=== PATIENT | male | born 1960 | race Caucasian/White ===

== ENCOUNTER 2019-06-22 10:52 | Emergency (ER) | payer MEDICARE ==
[2019-06-22] MEDS ORDERED: Dexamethasone IV* 4 MG/ML 1 ML (4 MG) IM ONE (11:35)
--- NOTE | 2019-06-22 11:35 | ED ---
Back Pain - HPI Summary HPI Summary: This patient is a 59 year old M presenting to ED with a chief complaint of lower back pain, head pain and neck pain since 06/20/19. Patient has previously had surgery twice on his low back. Patient reports decreased urination but normal bowel movements. Patients last back surgery was two years ago, which was the last time he had back pain. Patient has been shoveling recently. Patient moved into his new house two weeks ago, so he has been exerting himself recently with heavy lifting. Patient also reports having fluid in the left ear. The patient rates the pain 10/10 in severity. Symptoms aggravated by lifting. Symptoms alleviated by nothing. Patient has been taking Tylenol and Ibuprofen, which has not been helping. Patient reports cough. Patient denies incontinence, fevers, chills, nausea, vomiting. - History of Current Complaint Chief Complaint: EDBackInjuryPain Stated Complaint: BACK PAIN NECK PAIN Time Seen by Provider: 06/22/19 11:14 Hx Obtained From: Patient Onset/Duration: Lasting Days - 2 days ago, Still Present Onset/Duration: Started Days Ago - 2 days ago, Still Present Timing: Lasting Days - 2 days ago Back Pain Location: Is Discrete @ - Low back Severity Initially: Severe Severity Currently: Severe Pain Intensity: 11 Pain Scale Used: 0-10 Numeric Aggravating Symptom(s): Lifting Alleviating Symptom(s): Nothing Associated Signs And Symptoms: Positive: Other - Cough. Negative: Fever - Allergies/Home Medications Allergies/Adverse Reactions: Allergies Allergy/AdvReac Type Severity Reaction Status Date / Time latex Allergy Rash Verified 06/22/19 10:59 avoids oxycodone Allergy r/t Uncoded 06/22/19 10:59 duration of use, not dependent EPIDURAL Allergy Agitation, Uncoded 06/22/19 10:59 numbness PMH/Surg Hx/FS Hx/Imm Hx Endocrine/Hematology History: Reports: Hx Diabetes - on meds Cardiovascular History: Reports: Hx Hypertension Denies: Other Cardiovascular Problems/Disorders Comment Only: Hx Pacemaker/ICD - on meds Respiratory History: Denies: Other Respiratory Problems/Disorders GI History: Denies: Other GI Disorders History: Reports: Hx Kidney Stones - several times in the past Denies: Hx Renal Disease Musculoskeletal History: Reports: Hx Arthritis - KNEES, Sensory History: Denies: Hx Contacts or Glasses, Hx Hearing Aid Opthamlomology History: Denies: Hx Contacts or Glasses Neurological History: Denies: Other Neuro Impairments/Disorders Psychiatric History: Reports: Hx Anxiety - ON MEDICATION FOR, Hx Depression - ON MEDICATION FOR Denies: Hx Panic Disorder - Surgical History Surgery Procedure, Year, and Place: LT KNEE SCOPE X2(REMOVAL OF HARDWARE);, 1992 , [facility]. RT KNEE SCOPE,age 14. KIDNEY STONE REMOVED lithotripsy. LSP SURGERY 2016 L3-L4 , [facility]. hernia/ colon surgery, 2017 Hx Anesthesia Reactions: No Infectious Disease History: No Infectious Disease History: Denies: Traveled Outside the [place] in Last 30 Days - Family History Known Family History: Positive: Hypertension - Social History Alcohol Use: Rare Alcohol Amount: holidays Hx Substance Use: No Substance Use Type: Reports: None Hx Tobacco Use: Yes Smoking Status (MU): Heavy Every Day Tobacco Smoker Amount Used/How Often: 1 PPD X 45 YEARS Have You Smoked in the Last Year: Yes Review of Systems Negative: Fever, Chills Positive: Cough Negative: Vomiting, Nausea Negative: incontinence Musculoskeletal: Other - Back pain, neck pain, head pain All Other Systems Reviewed And Are Negative: Yes Physical Exam - Summary Physical Exam Summary: GENERAL: Patient is a well-developed and nourished M who is lying comfortable in the stretcher. Patient is not in any acute respiratory distress. HEAD AND FACE: Normocephalic EYES: PERRLA, EOMI x 2. EARS: Hearing grossly intact. LEFT TM CLEAR MOUTH: Oropharynx within normal limits. NECK: Supple, trachea is midline, no adenopathy, no JVD, no carotid bruit. CHEST: Symmetric, no tenderness at palpation LUNGS: Clear to auscultation bilaterally. No wheezing or crackles. CVS: Regular rate and rhythm, S1 and S2 present, no murmurs or gallops appreciated. ABDOMEN: Soft, non-tender. Bowel sounds are normal. No abnormal abdominal pulsations. BACK: tenderness to palpation L-spine area, surgical scar is clean, dry, and intact EXTREMITIES: Full ROM in all major joints, no edema, no cyanosis or clubbing. NEURO: Alert and oriented x 3. No acute neurological deficits. Speech is normal and follows commands. SKIN: Dry and warm Triage Information Reviewed: Yes Vital Signs On Initial Exam: Initial Vitals Temp Pulse Resp BP Pulse Ox 98.1 F 109 19 129/71 96 06/22/19 10:55 06/22/19 10:55 06/22/19 10:55 06/22/19 10:55 06/22/19 10:55 Vital Signs Reviewed: Yes Diagnostics - Vital Signs Vital Signs Temp Pulse Resp BP Pulse Ox 06/22/19 10:55 98.1 F 109 19 129/71 96 - Laboratory Result Diagrams: 06/22/19 13:44 06/22/19 13:44 Lab Statement: Any lab studies that have been ordered have been reviewed, and results considered in the medical decision making process. - Radiology CXR Radiology Interpretation Completed By: Radiologist Summary of Radiographic Findings: #. Stigmata of obstructive lung disease. No acute pulmonary or cardiac process evident. Dr. Petty has reviewed this radiology report. - CT L-spine CT Interpretation Completed By: Radiologist Summary of CT Findings: #. Negative for fracture. #. At L4-L5 there is a moderate broad dorsal disc protrusion with resulting increased impression on the ventral margin of the thecal sac compared with the 2015 exam moderately severe RIGHT and moderate LEFT foraminal stenosis at L4-L5 appears grossly unchanged. Postsurgical change of RIGHT unilateral laminectomy. Dr. Petty has reviewed this radiology report. A/P CT Interpretation Completed By: Radiologist Summary of CT Findings: #. The constellation of findings with edema within the fat surrounding the rectum, prostate, and urinary bladder is most suspicious for cystitis and/or or prostatitis given the clinical context. #. Negative for urolithiasis or hydronephrosis. Dr. Petty has reviewed this radiology report. Re-Evaluation - Re-Evaluation First Eval Re-Evaluation Time: 12:40 Comment: Discussed results with patient. Patient has broad dorsal disc herniation. Gave patient orange juice so he could provide urine. Second Eval Re-Evaluation Time: 13:14 Comment: Discussed UA results with patient. Patient's states she will regulate and monitor patient's pain medication. However, when I was about to discharge patient, patient said last night had shakes and rigors. Therefore, I took vital signs in the room, which were stable, and I will do blood work. Third Eval Re-Evaluation Time: 14:06 Comment: Discussed blood work with patient and need for a CT A/P to rule out kidney stones. Patient has a history of kidney stones. Fourth Eval Re-Evaluation Time: 15:13 Comment: Discussed CT A/P results with patient. Patient will be discharged home with dx of L4-L5 disc herniation, UTI, and prostatitis. Patient understands and agrees with this plan. Back Pain Course/Dx - Course Course Of Treatment: This patient is a 59 year old M presenting to ED with a chief complaint of lower back pain, head pain and neck pain since 06/20/19. In the ED course, patient received Flexeril, Decadron, Toradol, and Percocet. CT L- spine revealed #. Negative for fracture. #. At L4-L5 there is a moderate broad dorsal disc protrusion with resulting increased impression on the ventral margin of the thecal sac compared with the 2015 exam moderately severe RIGHT and moderate LEFT foraminal stenosis at L4-L5 appears grossly unchanged. Postsurgical change of RIGHT unilateral laminectomy. CXR revealed #. Stigmata of obstructive lung disease. No acute pulmonary or cardiac process evident. UA revealed 1+ urine protein, 2+ urine blood, 2+ leukocyte esterase, 3+ urine WBC, 2+ urine RBC, present urine squamous epithelial cells, 3+ urine bacteria, present hyaline casts, and 1+ urine glucose. UA consistent with a UTI, will treat pending cultures. I gave Keflex in the ED. I discussed results with patient, and he reports feeling better. However, when I was about to discharge patient, patient said last night he had shakes and rigors. Therefore, I took vital signs in the room, which were stable, and I will do blood work. Blood work revealed WBC 17.5, RBC 4.06, Hgb 13.3, Hct 38, MCH 33, Plt count 131, absolute neuts 14.9, absolute lymphs 0.9, absolute monos 1.5, INR 1.38, sodium 134, BUN/creatinine ratio 23.3, glucose 171, AST 11, CRP 185.76, lipase 88. CT A /P revealed #. The constellation of findings with edema within the fat surrounding the rectum, prostate, and urinary bladder is most suspicious for cystitis and/or or prostatitis given the clinical context. #. Negative for urolithiasis or hydronephrosis. I discussed results with patient. He is hemodynamically stable and safe for discharge. Strict return precautions given and he will otherwise follow up with his PCP. Patient will be discharged home with dx of L4-L5 disc herniation, UTI, and prostatitis. Patient was only prescribed a 2 weeks course of bactrim for presumed Prostatitis and is instructed to follow up outpatient for and additional 4 weeks treatment if this is truly Prostatitis. Patient understands and agrees with this plan. - Diagnoses Provider Diagnoses: UTI (urinary tract infection), Herniation of intervertebral disc between L4 and L5, Prostatitis Discharge ED - Sign-Out/Discharge Documenting (check all that apply): Patient Departure - Discharge Patient Received Moderate/Deep Sedation with Procedure: No - Discharge Plan Condition: Stable Disposition: HOME Prescriptions: Cephalexin CAP* [Keflex CAP*] 500 mg PO BID #14 cap Cyclobenzaprine TAB* [Flexeril 10 MG TAB*] 10 mg PO TID PRN #24 tab PRN Reason: Pain - Moderate Ibuprofen TAB* [Motrin TAB* 800 MG] 800 mg PO Q8H PRN 7 Days #24 tab PRN Reason: Pain - Moderate oxyCODONE TAB* [Roxycodone TAB 5 mg*] 5 mg PO Q8H PRN #9 tab MDD 3 PRN Reason: Pain - Moderate predniSONE [Prednisone 20 MG TAB] 40 mg PO DAILY #8 tablet Sulfamethox/Trimethoprim DS* [Bactrim DS 800/160 TAB*] 1 tab PO BID #28 tab Patient Education Materials: Prostatitis (ED), Urinary Tract Infection in Men ( ED), Lumbar Disc Herniation (ED) Referrals: Beni Galicia MD [Primary Care Provider] - 3 Days Dudley Parmar MD [Medical Doctor] - 3 Days Tj Palafox MD [Medical Doctor] - 3 Days Additional Instructions: You should follow-up with your PCP for continuation of back treatment regimen and for the treatment of prostatitis because I am only treating for two weeks. RETURN TO THE EMERGENCY DEPARTMENT FOR CHANGING OR WORSENING SYMPTOMS. - Billing Disposition and Condition Condition: STABLE Disposition: Home - Attestation Statements Document Initiated by Scribe: Yes Documenting Scribe: Harjinder Andrews Provider For Whom Higinio is Documenting (Include Credential): Caitlin Petty MD Scribe Attestation: Harjinder White, scribed for Caitlin Petty MD on 06/22/19 at 1558. Scribe Documentation Reviewed: Yes Provider Attestation: The documentation as recorded by the scribe, Harjinder Andrews accurately reflects the service I personally performed and the decisions made by me, Caitlin Petyt MD Status of Scribe Document: Viewed
[2019-06-22] MEDS ORDERED: Cyclobenzaprine TAB* 10 MG PO ONE (11:36)
[2019-06-22] MEDS ORDERED: Ketorolac *IM* INJ* 60 MG/2 ML VIAL IM ONE (11:36)
[2019-06-22] MEDS ORDERED: oxyCODONE/Acetamin 5/325 MG* TAB PO ONE (11:36)
[2019-06-22 13:04] LABS: Urine Appearance Cloudy; Urine Bacteria 3+ (Absent); Urine Bilirubin Negative (Negative); Urine Blood 2+ (Negative); Urine Color Amber; Urine Glucose 1+(50 mg/dL) (Negative); Urine Ketones Negative (Negative); Urine Nitrite Negative (Negative); Urine Protein 1+(30 mg/dL) (Negative); Urine Red Blood Cell 2+(6-10/hpf) (Absent); Urine Specific Gravity 1.026 (1.010-1.030); Urine Squamous Epithelial Cell Present (Absent); Urine Urobilinogen Negative (Negative); Urine White Blood Cell 3+(>20/hpf) (Absent)
[2019-06-22] MEDS ORDERED: Cephalexin CAP* 500 MG PO ONE (13:09)
[2019-06-22 13:58] LABS: ABS Basophils 0.1 10^3/ul (0-0.2); ABS Lymphocytes 0.9 10^3/ul (1.0-4.8); ABS Monocytes 1.5 10^3/ul (0-0.8); ABS Neutrophils 14.9 10^3/ul (1.5-7.7); Eosinophil % 0.3 %; Hematocrit 38 % (42-52); Hemoglobin 13.3 g/dL (14.0-18.0); Lymphocyte % 5.3 %; Mean Corpuscular HGB Conc 35 g/dL (31-36); Mean Corpuscular Hemoglobin 33 pg (27-31); Mean Corpuscular Volume 93 fL (80-94); Mean Platelet Volume 8.5 fL (7.4-10.4); Platelet Count 131 10^3/uL (150-450); Red Blood Count 4.06 10^6 /uL (4.18-5.48); Red Cell Distribution Width 13 % (10-15); White Blood Count 17.5 10^3/uL (3.5-10.8)
[2019-06-22 14:06] LABS: Activated Partial Thrombo Time 33.4 seconds (26.0-38.0); INR 1.38 (0.82-1.09)
[2019-06-22 14:16] LABS: Albumin 3.8 g/dL (3.2-5.2); Albumin/Globulin Ratio 1.4 (1-3); BUN/Creatinine Ratio 23.3 (8-20); Calcium 9.5 mg/dL (8.6-10.3); EGFR African American 88.8 (>60); EGFR Non-African American 73.4 (>60); Globulin 2.8 g/dL (2-4); Potassium 3.7 mmol/L (3.5-5.0); Total Bilirubin 0.7 mg/dL (0.2-1.0); Total Protein 6.6 g/dL (6.4-8.9)
[2019-06-22 14:21] LABS: CRP High Sensitivity 185.76 mg/L (<2.00)
[2019-06-22] MEDS ORDERED: Sulfamethox/Trimethoprim DS 800/160* TAB PO ONE (15:06)
[2019-06-22 15:22] VITALS: BP 119/73
== END 2019-06-22 15:21 | disposition home or self-care (01) ==
LOC: ED 10:52
DX: N39.0 Urinary tract infection, site not specified (principal); M51.26 Other intervertebral disc displacement, lumbar region; N41.9 Inflammatory disease of prostate, unspecified; R51 Headache; M54.2 Cervicalgia; E11.9 Type 2 diabetes mellitus without complications; Z79.84 Long term (current) use of oral hypoglycemic drugs; I10 Essential (primary) hypertension; Z87.442 Personal history of urinary calculi; F41.9 Anxiety disorder, unspecified; F32.9 Major depressive disorder, single episode, unspecified; F17.210 Nicotine dependence, cigarettes, uncomplicated; R05 Cough; Z79.899 Other long term (current) drug therapy
CPT/HCPCS: 36415; 71045; 72131; 74176; 80053; 81003; 81015; 83605; 83690; 83735; 85025; 85610; 85730; 86141; 87040; 87077; 87086; 87186; 96372; 99283; A9270-GY; J1100; J1885

== ENCOUNTER 2019-07-06 18:26 | Emergency (ER) | payer MEDICARE ==
[2019-07-06 18:40] VITALS: BP 110/58
--- NOTE | 2019-07-06 18:57 | UC ---
Abdominal Pain Male HPI - HPI Summary HPI Summary: 59-year-old male comes in with a chief complaint of epigastric pain and black stools. Is been going on for more than a week. He reports 2 to 3 black stools per day. Normally only has one stool per day. Reports epigastric pain is 9 out of 10. Is worse with palpation. No complaint of any fevers. Patient reports all this started when he started taking antibiotics for sepsis when he was [facility] to the [facility] on 22 June. Patient also has diabetes. - History of Current Complaint Chief Complaint: UCAbdominalPain Stated Complaint: VOMITTING,CONSTIPATION,ABD "KNOT" Time Seen by Provider: 07/06/19 18:39 Pain Intensity: 9 - Allergies/Home Medications Allergies/Adverse Reactions: Allergies Allergy/AdvReac Type Severity Reaction Status Date / Time latex Allergy Rash Verified 07/06/19 18:41 avoids oxycodone Allergy r/t Uncoded 07/06/19 18:41 duration of use, not dependent EPIDURAL Allergy Agitation, Uncoded 07/06/19 18:41 numbness Home Medications: Home Medications Cephalexin CAP* [Keflex CAP*] 500 mg PO DAILY 07/06/19 [History] Sulfamethox/Trimethoprim DS* [Bactrim DS 800/160 TAB*] 1 tab PO DAILY 07/06/19 [ History Confirmed 07/06/19] PMH/Surg Hx/FS Hx/Imm Hx Previously Healthy: Yes - KIDNEY STONES Endocrine History: Diabetes, Dyslipidemia Cardiovascular History: Hypertension - Surgical History Surgical History: Yes Surgery Procedure, Year, and Place: LT KNEE SCOPE X2(REMOVAL OF HARDWARE);, 1991 , [facility] [place]. RT KNEE SCOPE,age 14. KIDNEY STONE REMOVED lithotripsy. LSP SURGERY 2016 L3-L4 , [facility] [place]. hernia/ colon surgery, 2017 - Family History Known Family History: Positive: Hypertension - Social History Alcohol Use: Rare Alcohol Amount: holidays Substance Use Type: None Smoking Status (MU): Heavy Every Day Tobacco Smoker Amount Used/How Often: 1 PPD X 45 YEARS Have You Smoked in the Last Year: Yes Review of Systems All Other Systems Reviewed And Are Negative: Yes Constitutional: Positive: Negative Skin: Positive: Negative Eyes: Positive: Negative ENT: Positive: Negative Respiratory: Positive: Negative Cardiovascular: Positive: Negative Gastrointestinal: Positive: Abdominal Pain, Vomiting - Reports of vomiting denies any blood in the vomit., Other - SEE HPI Genitourinary: Positive: Frequency - Reports increased urinary frequency Motor: Positive: Negative Neurovascular: Positive: Negative Musculoskeletal: Positive: Negative Neurological: Positive: Negative Psychological: Positive: Negative Is Patient Immunocompromised?: No Physical Exam Triage Information Reviewed: Yes Appearance: Well-Appearing, Well-Nourished, Pain Distress - MILD/MODERATE WITH EXAM Vital Signs: Initial Vital Signs Temp 98.4 F 07/06/19 18:36 Pulse 106 07/06/19 18:36 Resp 16 07/06/19 18:36 BP 110/58 07/06/19 18:36 Pulse Ox 100 07/06/19 18:36 Vital Signs Reviewed: Yes Eye Exam: Normal Eyes: Positive: Conjunctiva Clear Neck: Positive: Supple Respiratory: Positive: Lungs clear, Normal breath sounds, No respiratory distress Cardiovascular: Positive: Tachycardia Abdomen Description: Positive: Other: - Tender to palpation in the epigastrium. Lower abdomen is nontender. Bowel Sounds: Positive: Present Musculoskeletal: Positive: ROM Intact Neurological: Positive: Alert, Muscle Tone Normal Psychological: Positive: Age Appropriate Behavior Skin Exam: Normal Abd Pain Male Course/Dx - Course Course Of Treatment: I recommended further evaluation in the emergency department patient declined embolus transport said he would go by POV. I discussed the patient with a [facility] emergency department provider. - Differential Dx/Clinical Impression Provider Diagnosis: Abdominal pain, Epigastric pain, Black stools Discharge ED - Sign-Out/Discharge Documenting (check all that apply): Patient Departure All imaging exams completed and their final reports reviewed: No Studies - Discharge Plan Condition: Stable Disposition: HOME-RECOMMEND TO ED Patient Education Materials: Epigastric Pain (ED), Melena (ED) Referrals: Beni Galicia MD [Primary Care Provider] - Additional Instructions: GO DIRECTLY TO THE EMERGENCY DEPARTMENT FOR FURTHER EVALUATION AND CARE OF YOUR ABDOMINAL PAIN AND BLACK STOOLS. - Billing Disposition and Condition Condition: STABLE Disposition: Home-Recommend to ED
== END 2019-07-06 19:02 | disposition home health service (06) ==
LOC: UCCORT 18:26
DX: R10.13 Epigastric pain (principal); K92.1 Melena; E11.9 Type 2 diabetes mellitus without complications; I10 Essential (primary) hypertension; F17.210 Nicotine dependence, cigarettes, uncomplicated
CPT/HCPCS: 99212; G0463

== ENCOUNTER 2019-12-23 10:35 | Emergency (ER) | payer MEDICARE ==
--- NOTE | 2019-12-23 10:51 | ED ---
Lower Extremity - HPI Summary HPI Summary: 59 year old M presenting to [facility] with a chief complaint of right lower extremity pain that begins at his hip and radiates to his ankle since 2 weeks ago. The patient rates the pain 9/10 in severity. Patient reports right ankle swelling and right knee pain. Symptoms aggravated by sitting and palpation. Symptoms alleviated by nothing. The patient was seen in May of 2019 for right ankle pain that had subsided and has now returned. The patient admits to an active history of smoking. Medication list reviewed. Allergy list reviewed. Home Medications Medication Instructions Recorded Confirmed Type Citalopram TAB* [Celexa TAB*] 20 mg PO QAM 11/05/15 07/06/19 History Hydrochlorothiazide TAB* 25 mg PO QAM 11/05/15 07/06/19 History [Hydrodiuril TAB*] Simvastatin [Zocor 40 MG (NF)] 40 mg PO QAM 11/05/15 07/06/19 History Verapamil TAB* [Calan TAB*] 120 mg PO QAM 11/05/15 07/06/19 History metFORMIN* [Glucophage 500 MG TAB 1,000 mg PO QAM 11/05/15 07/06/19 History *] Lisinopril TAB* [Prinivil TAB 10 40 mg PO DAILY 06/08/19 07/06/19 History MG*] Ibuprofen TAB* [Motrin TAB* 800 MG] 800 mg PO Q8H PRN 7 Days #24 tab 06/22/19 Rx Cephalexin CAP* [Keflex CAP*] 500 mg PO DAILY 07/06/19 History Sulfamethox/Trimethoprim DS* 1 tab PO DAILY 07/06/19 07/06/19 History [Bactrim DS 800/160 TAB*] - History of Current Complaint Chief Complaint: EDExtremityLower Stated Complaint: RT LEG/BACK PAIN PER PT Time Seen by Provider: 12/23/19 10:45 Hx Obtained From: Patient Mechanism Of Injury: Unknown Onset of Pain: Days Onset/Duration: Weeks Severity Initially: Severe Severity Currently: Severe Pain Intensity: 9 Pain Scale Used: 0-10 Numeric Location: Is Discrete @ - Right leg Aggravating Factor(s): Other - Sitting; palpation Alleviating Factor(s): Nothing - Allergies/Home Medications Allergies/Adverse Reactions: Allergies Allergy/AdvReac Type Severity Reaction Status Date / Time latex Allergy Rash Verified 12/23/19 10:40 Sulfa (Sulfonamide Allergy Abdominal Verified 12/23/19 10:41 Antibiotics) Pain EPIDURAL Allergy Agitation, Uncoded 12/23/19 10:40 numbness Home Medications: Home Medications Hydrochlorothiazide TAB* [Hydrodiuril TAB*] 25 mg PO QAM 11/05/15 [History Confirmed 12/23/19] Simvastatin [Zocor 40 MG (NF)] 40 mg PO QPM 11/05/15 [History Confirmed 12/23/19 ] Verapamil TAB* [Calan TAB*] 120 mg PO DAILY 11/05/15 [History Confirmed 12/23/19 ] metFORMIN* [Glucophage 500 MG TAB *] 1,000 mg PO DAILY 11/05/15 [History Confirmed 12/23/19] Betamethasone Nita 0.1% CM(NF) [Valisone 0.1% CM(NF)] 1 applic TOPICAL DAILY 07/05 [History Confirmed 12/23/19] Omeprazole (Nf) [Prilosec (NF)] 40 mg PO DAILY 12/23/19 [History Confirmed 12/22] Telmisartan 20 mg PO DAILY 12/23/19 [History Confirmed 12/23/19] buPROPion SR TAB* [Wellbutrin SR TAB*] 150 mg PO BID 12/23/19 [History Confirmed 12/23/19] PMH/Surg Hx/FS Hx/Imm Hx Endocrine/Hematology History: Reports: Hx Diabetes - on meds Cardiovascular History: Reports: Hx Hypertension Denies: Other Cardiovascular Problems/Disorders Comment Only: Hx Pacemaker/ICD - on meds Respiratory History: Denies: Other Respiratory Problems/Disorders GI History: Denies: Other GI Disorders History: Reports: Hx Kidney Stones - several times in the past Denies: Hx Renal Disease Musculoskeletal History: Reports: Hx Arthritis - KNEES, Sensory History: Denies: Hx Contacts or Glasses, Hx Hearing Aid Opthamlomology History: Denies: Hx Contacts or Glasses Neurological History: Denies: Other Neuro Impairments/Disorders Psychiatric History: Reports: Hx Anxiety - ON MEDICATION FOR, Hx Depression - ON MEDICATION FOR Denies: Hx Panic Disorder - Surgical History Surgery Procedure, Year, and Place: LT KNEE SCOPE X2(REMOVAL OF HARDWARE);, 1991 , [facility]. RT KNEE SCOPE,age 14. KIDNEY STONE REMOVED lithotripsy. LSP SURGERY 2016 L3-L4 , [facility]. hernia/ colon surgery, 2017 Hx Anesthesia Reactions: No Infectious Disease History: No Infectious Disease History: Denies: Traveled Outside the [place] in Last 30 Days - Family History Known Family History: Positive: Hypertension - Social History Alcohol Use: Rare Alcohol Amount: holidays Hx Substance Use: No Substance Use Type: Reports: None Hx Tobacco Use: Yes Smoking Status (MU): Heavy Every Day Tobacco Smoker Amount Used/How Often: 1 PPD X 45 YEARS Have You Smoked in the Last Year: Yes Review of Systems Positive: Other - Right leg pain; right hip pain; right ankle pain; right knee pain Positive: Other - Right ankle swelling All Other Systems Reviewed And Are Negative: Yes Physical Exam - Summary Physical Exam Summary: VITAL SIGNS: Reviewed. GENERAL: Patient is an obese male in no acute distress who is lying comfortable in the stretcher. Patient is not in any acute respiratory distress. HEAD AND FACE: No signs of trauma. No ecchymosis, hematomas or skull depressions. No sinus tenderness. EYES: PERRLA, EOMI x 2, No injected conjunctiva, no nystagmus. EARS: Hearing grossly intact. Ear canals and tympanic membranes are within normal limits. MOUTH: Oropharynx within normal limits. NECK: Supple, trachea is midline, no adenopathy, no JVD, no carotid bruit, no c- spine tenderness, neck with full ROM. CHEST: Symmetric, no tenderness at palpation. LUNGS: Clear to auscultation bilaterally. No wheezing or crackles. CVS: Regular rate and rhythm, S1 and S2 present, no murmurs or gallops appreciated. ABDOMEN: Soft, non-tender. No signs of distention. No rebound, no guarding, and no masses palpated. Bowel sounds are normal. EXTREMITIES: Decreased range of motion in right hip secondary to pain, no injury , no deformity; right calf slightly tender, no swelling, no erythema. Has an erythematous patch with scaling to the dorsal aspect of his knee secondary to psoriasis. Ankle tenderness to dorsal aspect of his ankle and foot, no deformity , no erythema, good pulses, good capillary fill. NEURO: Alert and oriented x 3. No acute neurological deficits. Speech is normal and follows commands. SKIN: Dry and warm. Triage Information Reviewed: Yes Vital Signs On Initial Exam: Initial Vitals Temp Pulse Resp BP Pulse Ox 98.4 F 92 18 165/99 97 12/23/19 10:37 12/23/19 10:37 12/23/19 10:37 12/23/19 10:37 12/23/19 10:37 Vital Signs Reviewed: Yes Procedures - Sedation Patient Received Moderate/Deep Sedation with Procedure: No Diagnostics - Vital Signs Vital Signs Temp Pulse Resp BP Pulse Ox 12/23/19 10:37 98.4 F 92 18 165/99 97 - Laboratory Result Diagrams: 12/23/19 11:02 12/23/19 11:00 Lab Statement: Any lab studies that have been ordered have been reviewed, and results considered in the medical decision making process. - Radiology Hip/Pelvis x-ray Radiology Interpretation Completed By: Radiologist Summary of Radiographic Findings: NO ACUTE OSSEOUS INJURY. IF SYMPTOMS PERSIST, RECOMMEND REPEAT IMAGING. ED physician has reviewed this report. Foot x-ray Radiology Interpretation Completed By: Radiologist Summary of Radiographic Findings: OSTEOARTHRITIS. NO ACUTE OSSEOUS INJURY. IF SYMPTOMS PERSIST, RECOMMEND REPEAT IMAGING. ED physician has reviewed this report. Ankle x-ray Radiology Interpretation Completed By: Radiologist Summary of Radiographic Findings: OSTEOARTHRITIS. NO ACUTE OSSEOUS INJURY. IF SYMPTOMS PERSIST, RECOMMEND REPEAT IMAGING. ED physician has reviewed this report. - Ultrasound Venous Doppler Ultrasound Interpretation Completed By: Radiologist Summary of Ultrasound Findings: NO RIGHT LOWER EXTREMITY DEEP VEIN THROMBOSIS. ED physician has reviewed this report. Lower Extremity Course/Dx - Course Assessment/Plan: 59 year old M presenting to [facility] with a chief complaint of right lower extremity pain that begins at his hip and radiates to his ankle since 2 weeks ago. The patient rates the pain 9/10 in severity. Patient reports right ankle swelling and right knee pain. Symptoms aggravated by sitting and palpation. Symptoms alleviated by nothing. The patient was seen in May of 2019 for right ankle pain that had subsided and has now returned. The patient admits to an active history of smoking. Medication list reviewed. Allergy list reviewed. Blood work without a significant abnormality except for hematocrit 41 , chloride 99, glucose is 234. In the ED course the patient was given Toradol and [place] for pain. Hip x-ray impression: No acute osseous injury. Foot and ankle x-ray IMPRESSION: OSTEOARTHRITIS. NO ACUTE OSSEOUS INJURY. IF SYMPTOMS PERSIST, RECOMMEND REPEAT IMAGING. RLE u/s IMPRESSION: NO RIGHT LOWER EXTREMITY DEEP VEIN THROMBOSIS. I discussed all the findings and test results with the patient. Patient was instructed to return to the emergency room immediately if any of the symptoms return or worsen. Plan of care was discussed with the patient and he understands and agrees. All questions were answered at patient satisfaction. There were no further complaints or concerns. Lung exam before discharge: CTA B/L. Good air exchange. No wheezing or crackles heard. CVS : S1 and S2 present. No murmurs appreciated. Patient is alert and oriented x 3. Patient is hemodynamically stable. Patient will be discharged home with follow up PCP in the next 2-3 days. - Diagnoses Differential Diagnosis/HQI/PQRI: Positive: Bursitis, Cellulitis, Contusion, DVT , Fracture (Closed), Sprain, Strain Provider Diagnoses: Hip pain, chronic, Ankle pain, chronic, Swelling of lower leg Discharge ED - Sign-Out/Discharge Documenting (check all that apply): Patient Departure - Discharge Plan Condition: Stable Disposition: HOME Patient Education Materials: Musculoskeletal Pain (ED), Arthralgia (ED), Hip Pain (ED) Referrals: Beni Galicia MD [Primary Care Provider] - 3 Days Additional Instructions: Follow up with your primary care provider within 3 days for musculoskeletal pain noted today. Return to the emergency department for any worsening or new symptoms. - Billing Disposition and Condition Condition: STABLE Disposition: Home - Attestation Statements Document Initiated by Higinio: Yes Documenting Scribe: Maria E Geller Provider For Whom Higinio is Documenting (Include Credential): Kevin Meyers MD Scribe Attestation: Maria E White scribed for Kevin Meyers MD on 12/24/19 at 1135. Scribe Documentation Reviewed: Yes Provider Attestation: The documentation as recorded by the Maria E wang accurately reflects the service I personally performed and the decisions made by me, Kevin Meyers MD Status of Scribe Document: Viewed
[2019-12-23 11:10] LABS: ABS Basophils 0.1 10^3/ul (0-0.2); ABS Eosinophils 0.2 10^3/ul (0-0.6); ABS Lymphocytes 2.1 10^3/ul (1.0-4.8); ABS Monocytes 0.5 10^3/ul (0-0.8); ABS Neutrophils 4.2 10^3/ul (1.5-7.7); Eosinophil % 2.5 %; Hematocrit 41 % (42-52); Hemoglobin 14.6 g/dL (14.0-18.0); Mean Corpuscular HGB Conc 35 g/dL (31-36); Mean Corpuscular Hemoglobin 32 pg (27-31); Mean Corpuscular Volume 91 fL (80-94); Platelet Count 199 10^3/uL (150-450); Red Blood Count 4.51 10^6 /uL (4.18-5.48); Red Cell Distribution Width 13 % (10-15)
[2019-12-23 12:33] LABS: Erythrocyte Sed Rate 8 mm/Hr (0-19)
[2019-12-23] MEDS ORDERED: HYDROcodone/ACETAMIN 5-325 MG* 1 TAB PO ONE (12:37)
[2019-12-23] MEDS ORDERED: Ketorolac *IM* INJ* 60 MG/2 ML VIAL IM ONE (12:37)
[2019-12-23 12:55] LABS: Albumin 4.2 g/dL (3.2-5.2); Calcium 9.4 mg/dL (8.6-10.3); Potassium 4.1 mmol/L (3.5-5.0); Total Bilirubin 0.6 mg/dL (0.2-1.0)
[2019-12-23 13:01] LABS: BUN/Creatinine Ratio 23.5 (8-20); EGFR African American 143.4 (>60); EGFR Non-African American 118.6 (>60); Globulin 2.1 g/dL (2-4); Total Protein 6.3 g/dL (6.4-8.9)
[2019-12-23 14:09] VITALS: BP 149/95
== END 2019-12-23 14:08 | disposition home or self-care (01) ==
LOC: ED 10:35
DX: G89.29 Other chronic pain (principal); M25.551 Pain in right hip; M25.571 Pain in right ankle and joints of right foot; M25.561 Pain in right knee; M79.89 Other specified soft tissue disorders; M19.071 Primary osteoarthritis, right ankle and foot; E11.9 Type 2 diabetes mellitus without complications; Z79.84 Long term (current) use of oral hypoglycemic drugs; I10 Essential (primary) hypertension; F41.9 Anxiety disorder, unspecified; F32.9 Major depressive disorder, single episode, unspecified; Z79.899 Other long term (current) drug therapy; Z95.810 Presence of automatic (implantable) cardiac defibrillator; Z88.2 Allergy status to sulfonamides; Z88.4 Allergy status to anesthetic agent; Z91.040 Latex allergy status; F17.210 Nicotine dependence, cigarettes, uncomplicated
CPT/HCPCS: 36415; 80053; 83605; 85025; 85652; 86140; 96372; 99283; J1885

== ENCOUNTER 2021-03-02 13:06 | Inpatient (IN) ==
[~2021-03-02 13:06] MED LIST: Buffered Lidocaine 1% SYRIN 1 ml INTRADERM ONE; DiMENhydriNATE IV 50 mg/ml 1 ml VIAL IV PUSH PRN; Lactated Ringers 1000 ml BAG 1,000 ML IV SCH; Naloxone 0.4 mg VIAL 0.4 mg/ml 1 ml VIAL IV PRN; Ondansetron 4 mg VIAL 2 MG/ML 2 ml VIAL IV PRN; ROPIVACAINE 5 MG/ML 30 ML BTL (0.5%) ONE; fentaNYL 100 mcg/2 ml 50 MCG/ML VIAL IV PRN; oxyCODONE/Acetamin 5/325 mg TAB PO PRN
[2021-03-02] MEDS ORDERED: ceFAZolin 2 GM PREMIX 2 GM/50 ML BAG ONE (13:52)
[2021-03-02] MEDS ORDERED: Lidocaine 2% PF 5 ML VIAL ONE (14:21)
[2021-03-02] MEDS ORDERED: Ketamine HCL 50 mg/ml 10 ml VIAL (500 MG) ONE (14:21)
[2021-03-02] MEDS ORDERED: fentaNYL 100 mcg/2 ml 50 MCG/ML VIAL ONE ×2 (14:21→15:53)
[2021-03-02] MEDS ORDERED: Midazolam 2 mg/2 ml VIAL 1 mg/ml 2 ml VIAL (2 mg) ONE (14:21)
[2021-03-02] MEDS ORDERED: Propofol 10 mg/ml 100 ML BTL 100 ML ONE (15:05)
[2021-03-02] MEDS ORDERED: Dexamethasone IV 4 MG/ML VIAL 1 ml VIAL ONE ×2 (15:53→17:21)
[2021-03-02] MEDS ORDERED: Midazolam 5 mg/5 ml VIAL 1 mg/ml 5 ml VIAL (5 mg) ONE (15:53)
[2021-03-02] MEDS ORDERED: Ondansetron 4 mg VIAL 2 MG/ML 2 ml VIAL IV PRN (16:38)
[2021-03-02] MEDS ORDERED: Lactulose 30 ml UDC PO PRN (16:38)
[2021-03-02] MEDS ORDERED: Magnesium Hydroxide LIQ 30 ML UDC PO PRN (16:38)
[2021-03-02] MEDS ORDERED: Morphine 2 MG/ML SYRINGE IV PRN (16:38)
[2021-03-02] MEDS ORDERED: Ondansetron ODT 4 mg TAB 4 MG TAB PO PRN (16:38)
[2021-03-02] MEDS ORDERED: diPHENhydraMINE 25 mg TAB PO PRN (16:38)
[2021-03-02] MEDS ORDERED: diPHENhydraMINE IV 50 MG/ML 1 ml VIAL (BENADRYL) IV PRN (16:38)
[2021-03-02] MEDS ORDERED: Dexmedetomidine 200 mcg/2 ml 2 ml VIAL (200 mcg) ONE (16:40)
[2021-03-02] MEDS ORDERED: Ropivacaine 5 MG/ML 20 ML VIAL 0.5% (100 MG) ONE (16:42)
[2021-03-02] MEDS ORDERED: Lactated Ringers 1000 ml BAG 1,000 ML IV SCH (17:00)
[2021-03-02] MEDS ORDERED: Ondansetron 4 mg VIAL 2 MG/ML 2 ml VIAL ONE (17:21)
[2021-03-02] MEDS ORDERED: Phenylephrine IV 10 MG/ML 1 ml VIAL ONE (18:18)
[2021-03-02] MEDS ORDERED: oxyCODONE/Acetamin 5/325 mg TAB ONE (20:24)
[2021-03-02] MEDS: Magnesium Hydroxide LIQ 30 ML UDC PO SCH (23:00)
[2021-03-03] MEDS: ceFAZolin 1 GM ADVAN 1 GM in NS 0.9% 50 ML 50 ML IVPB SCH ×2 (01:21→08:43)
[2021-03-03] MEDS: oxyCODONE/Acetamin 5/325 mg TAB PO PRN ×3 (03:47→12:24)
[2021-03-03 05:05] LABS: Hematocrit 38 % (42-52); Hemoglobin 13.4 g/dL (14.0-18.0); Mean Platelet Volume 8.8 fL (7.4-10.4); Platelet Count 188 10^3/uL (150-450)
[2021-03-03 05:31] LABS: Calcium 9.2 mg/dL (8.6-10.3); EGFR Non-African American 92.6 (>60); Potassium 4.5 mmol/L (3.5-5.0)
[2021-03-03] MEDS ORDERED: Dextrose 50% Syringe 50 ml 25 GM/50 ML SYRINGE IV PUSH PRN (06:25)
[2021-03-03 08:16] LABS: Glucose Confirmatory 437 mg/dL (70-100)
[2021-03-03] MEDS: Magnesium Hydroxide LIQ 30 ML UDC PO SCH (08:45)
[2021-03-03] MEDS ORDERED: Vitamin THERAPEUTIC TAB PO SCH (09:00)
[2021-03-03 11:08] VITALS: BP 150/67
== END 2021-03-03 13:20 | disposition home or self-care (01) | DRG 470 ==
LOC: AA 13:06 → SSU 21:31
PROVIDERS: ADMIT Orthopaedic Surgery Adult Reconstructive Orthopaedic Surgery; ATTEND Orthopaedic Surgery Adult Reconstructive Orthopaedic Surgery

== ENCOUNTER 2021-10-21 14:30 | Inpatient (IN) ==
[2021-11-09] MEDS ORDERED: Lactated Ringers 1000 ml BAG 1,000 ML IV SCH ×2 (06:00→17:00)
[2021-11-09] MEDS ORDERED: Buffered Lidocaine 1% SYRIN 1 ml INTRADERM ONE (06:00)
[2021-11-09] MEDS ORDERED: ceFAZolin 2 GM PREMIX 2 GM/50 ML BAG ONE (13:44)
[2021-11-09] MEDS ORDERED: Midazolam 5 mg/5 ml VIAL 1 mg/ml 5 ml VIAL (5 mg) ONE (14:26)
[2021-11-09] MEDS ORDERED: Ropivacaine 5 MG/ML 20 ML VIAL 0.5% (100 MG) ONE (14:27)
[2021-11-09] MEDS ORDERED: Lidocaine 1% MPF 5 ML VIAL ONE (14:37)
[2021-11-09] MEDS ORDERED: ROPIVACAINE 5 MG/ML 30 ML BTL (0.5%) ONE (14:37)
[2021-11-09] MEDS ORDERED: fentaNYL 100 mcg/2 ml 50 MCG/ML VIAL ONE (15:00)
[2021-11-09] MEDS ORDERED: Dexamethasone IV 4 MG/ML VIAL 1 ml VIAL ONE (15:00)
[2021-11-09] MEDS ORDERED: Propofol 10 MG/ML 20 ML BTL ONE ×3 (15:00→17:31)
[2021-11-09] MEDS ORDERED: Lidocaine 2% PF 5 ML VIAL ONE (15:00)
[2021-11-09] MEDS ORDERED: Ondansetron 4 mg VIAL 2 MG/ML 2 ml VIAL ONE (15:00)
[2021-11-09] MEDS ORDERED: Naloxone 0.4 mg VIAL 0.4 mg/ml 1 ml VIAL IV PRN (15:54)
[2021-11-09] MEDS ORDERED: HYDROmorphone 1 MG/1 ML SYRINGE IV PRN (15:54)
[2021-11-09] MEDS ORDERED: DiMENhydriNATE IV 50 mg/ml 1 ml VIAL IV PUSH PRN (15:54)
[2021-11-09] MEDS ORDERED: oxyCODONE/Acetamin 5/325 mg TAB PO PRN (15:54)
[2021-11-09] MEDS ORDERED: Midazolam 2 mg/2 ml VIAL 1 mg/ml 2 ml VIAL (2 mg) IV SLOW PU PRN ×2 (15:55→16:03)
[2021-11-09] MEDS ORDERED: Magnesium Hydroxide LIQ 30 ML UDC PO PRN (16:19)
[2021-11-09] MEDS ORDERED: Lactulose 30 ml UDC PO PRN (16:19)
[2021-11-09] MEDS ORDERED: diPHENhydraMINE 25 mg TAB PO PRN (16:19)
[2021-11-09] MEDS ORDERED: Ondansetron ODT 4 mg TAB 4 MG TAB PO PRN (16:19)
[2021-11-09] MEDS ORDERED: Ondansetron 4 mg VIAL 2 MG/ML 2 ml VIAL IV PRN (16:19)
[2021-11-09] MEDS ORDERED: diPHENhydraMINE IV 50 MG/ML 1 ml VIAL (BENADRYL) IV PRN (16:19)
[2021-11-09] MEDS ORDERED: Morphine 2 MG/ML SYRINGE IV PRN (16:19)
[2021-11-09] MEDS ORDERED: diPHENhydraMINE IV 50 MG/ML 1 ml VIAL (BENADRYL) ONE (18:37)
[2021-11-09] MEDS: Magnesium Hydroxide LIQ 30 ML UDC PO SCH (21:01)
[2021-11-09] MEDS: ceFAZolin 1 GM ADVAN 1 GM in NS 0.9% 50 ML 50 ML IVPB SCH (23:41)
[2021-11-10 06:22] LABS: Hematocrit 33 % (42-52); Hemoglobin 11.8 g/dL (14.0-18.0); Mean Platelet Volume 8.4 fL (7.4-10.4); Platelet Count 184 10^3/uL (150-450)
[2021-11-10 06:43] LABS: Calcium 9.4 mg/dL (8.6-10.3); Potassium 4.3 mmol/L (3.5-5.0)
[2021-11-10 07:46] VITALS: BP 142/70
[2021-11-10] MEDS: ceFAZolin 1 GM ADVAN 1 GM in NS 0.9% 50 ML 50 ML IVPB SCH (08:00)
[2021-11-10] MEDS: Magnesium Hydroxide LIQ 30 ML UDC PO SCH (08:11)
[2021-11-10] MEDS ORDERED: Vitamin THERAPEUTIC TAB PO SCH (09:00)
[2021-11-10] MEDS ORDERED: Flu vaccine *QUAD* 2021-22* 0.5 ML SYRINGE IM ONE (09:00)
== END 2021-11-10 11:45 | disposition home or self-care (01) | DRG 470 ==
LOC: AA 11-09 12:15 → SSU 11-09 19:52
PROVIDERS: ADMIT Orthopaedic Surgery Adult Reconstructive Orthopaedic Surgery; ATTEND Orthopaedic Surgery Adult Reconstructive Orthopaedic Surgery